=== PATIENT | female | born 1950 | race African-American/Black ===

== ENCOUNTER 2019-06-29 11:29 | Emergency (ER) | payer BC, MEDICARE ==
[~2019-06-29] VITALS: Ht 162.6 cm; Wt 105.0 kg
[2019-06-29] MEDS ORDERED: ACETAMINOPHEN 325MG TABLET PO ONE (12:45)
[2019-06-29] MEDS ORDERED: AMLODIPINE 10MG TABLET PO ONE (12:45)
[2019-06-29 13:45] VITALS: BP 169/72
== END 2019-06-29 14:15 | disposition home or self-care (01) ==
LOC: ER 11:42
DX: G43.909 Migraine, unspecified, not intractable, without status migrainosus (principal); I10 Essential (primary) hypertension; H16.001 Unspecified corneal ulcer, right eye; Z98.890 Other specified postprocedural states
CPT/HCPCS: 99283